=== PATIENT | female | born 1950 | race Two or more races ===

== ENCOUNTER 2016-08-03 13:36 | Outpatient (CLI) | payer MEDICARE | END 2016-08-03 13:37 | disposition home or self-care (01) | DX: M19.032 Primary osteoarthritis, left wrist (principal) ==

== ENCOUNTER 2016-08-09 08:00 | Outpatient (CLI) | payer MEDICARE | END 2016-08-09 08:01 | disposition home or self-care (01) | DX: R07.9 Chest pain, unspecified (principal); R06.02 Shortness of breath; R00.2 Palpitations; E78.00 Pure hypercholesterolemia, unspecified; R06.83 Snoring ==

== ENCOUNTER 2016-10-15 08:00 | Outpatient (CLI) | payer MEDICARE | END 2016-10-15 23:59 | DX: R07.9 Chest pain, unspecified (principal); R00.2 Palpitations; I34.0 Nonrheumatic mitral (valve) insufficiency; I51.9 Heart disease, unspecified; E78.00 Pure hypercholesterolemia, unspecified; R06.02 Shortness of breath; R06.83 Snoring ==

== ENCOUNTER 2017-08-08 10:55 | Emergency (ER) | payer MEDICARE ==
[2017-08-08 11:26] VITALS: BP 110/62
[2017-08-08] MEDS ORDERED: ONDANSETRON ODT 4 MG TABLET TL STA (12:10)
[2017-08-08] MEDS ORDERED: ACETAMINOPHEN 325 MG TABLET PO STA (12:10)
[2017-08-08] MEDS ORDERED: guaiFENesin/DEXTROMETHORPHAN 10 ML UDC PO STA (12:10)
[2017-08-08] MEDS ORDERED: BENZONATATE 100 MG CAPSULE PO STA (12:10)
--- NOTE | 2017-08-08 12:28 | XRAY Preliminary Report ---
Exam: XR CHEST 2 VIEW X-RAY IMPRESSION: No evidence of acute thoracic process [facility] SITE ID: [id number]
--- NOTE | 2017-08-08 12:28 | XRAY Report ---
EXAM: CHEST RADIOGRAPHY EXAM DATE: 08/08/2017 12:20 PM. CLINICAL HISTORY: Fever chest congestion. COMPARISON: Two-view chest 06/03/2016. TECHNIQUE: 2 views. FINDINGS: Lungs/Pleura: No focal opacities evident. No pleural effusion. No pneumothorax. Normal volumes. Mediastinum: Heart and mediastinal contours are unremarkable. IMPRESSION: No evidence of acute thoracic process [facility] Referring Provider Line: [phone] SITE ID: [id number]
[2017-08-08] MEDS ORDERED: OSELTAMIVIR 75 MG CAPSULE PO STA (12:49)
--- NOTE | 2017-08-08 12:51 | ED Physician Documentation ---
History of Present Illness - Stated complaint Stated Complaint: FEVER/CHILLS - Chief complaint Chief Complaint: General - Additonal information Additional information: hx from pt 66 male 3 days of fever chills GUERRERO mylagias cough no travel or sick contacts Review of Systems Constitutional: reports: Fever, Chills, Myalgias Respiratory: reports: Cough GI: denies: Vomiting, Diarrhea Neurologic: reports: Headache Immunocompromised: denies: Immunocompromised, Chemotherapy PD PAST MEDICAL HISTORY - Past Medical History Past Medical History: Yes Musculoskeletal: Chronic back pain - Past Surgical History 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 - Present Medications Home Medications: Ambulatory Orders Medication Instructions Recorded Confirmed Meloxicam 15 mg PO DAILY 02/17/14 08/08/17 Benzonatate [Tessalon] 100 mg PO TID PRN #20 capsule 08/08/17 Oseltamivir [Tamiflu] 75 mg PO BID #9 capsule 08/08/17 Pravastatin [Pravachol] 10 mg PO DAILY 08/08/17 08/08/17 guaiFENesin/DEXTROMETHORPHAN 10 ml PO Q6H PRN #120 ml 08/08/17 [Robitussin Dm] - Allergies Allergies/Adverse Reactions: Allergies Allergy/AdvReac Type Severity Reaction Status Date / Time No Known Drug Allergies Allergy Verified 08/08/17 11:26 - Social History Does the pt smoke?: No Smoking Status: Never smoker Does the pt drink ETOH?: No Does the pt have substance abuse?: No - Immunizations Immunizations are current?: Yes - POLST Patient has POLST: No PD ED PE NORMAL - Vitals Vital signs reviewed: Yes - General General: Alert and oriented X 3 - HEENT HEENT: PERRL, Ears normal, Moist mucous membranes - Neck Neck: Supple, no meningeal sign - Cardiac Cardiac: RRR - Respiratory Respiratory: No respiratory distress, Clear bilaterally - Abdomen Abdomen: Soft, Non tender - Derm Derm: Normal color - Extremities Extremities: No deformity - Neuro Neuro: Alert and oriented X 3 Results - Vitals Vitals: Vital Signs - 24 hr 08/08/17 11:23 Temperature 37.6 C H Heart Rate 99 Respiratory 20 Rate Blood Pressure 110/62 O2 Saturation 95 Oxygen O2 Source Room air - Labs Labs: Laboratory Tests 08/08/17 11:47 Influenza A (Rapid) POSITIVE H Influenza B (Rapid) Negative Influenza Types A,B Ag + H - Rads (name of study) CXR Radiology: See rad report (NACPD) Departure - Departure Disposition: 01 Home, Self Care Clinical Impression: Influenza A Condition: Good Instructions: ED Flu Follow-Up: Irena Mendoza ARNP [Primary Care Provider] - Prescriptions: Benzonatate [Tessalon] 100 mg PO TID PRN #20 capsule PRN Reason: to ease cough guaiFENesin/DEXTROMETHORPHAN [Robitussin Dm] 10 ml PO Q6H PRN #120 ml PRN Reason: Cough Oseltamivir [Tamiflu] 75 mg PO BID #9 capsule Comments: You do have influenza A You do not have pneumonia The tamiflu will help mitigate the severity of the symptoms but you will probably be sick for another week. If you get acutely worse, please come back to the ER - sometimes after having influenza, people can get a secondary pneumonia
== END 2017-08-08 13:02 | disposition home or self-care (01) ==
LOC: ED 10:55
DX: J09.X2 Influenza due to identified novel influenza A virus with other respiratory manifestations (principal)
CPT/HCPCS: 71046; 87275; 87276; 99283; A9270; Q0162; 81001; 81003; 87086

== ENCOUNTER 2018-01-10 08:00 | Outpatient (CLI) | payer MEDICARE ==
[2018-01-10 18:57] LABS: BILIRUBIN,URINE NEGATIVE (NEGATIVE); GLUCOSE, URINE (UA) NEGATIVE (NEGATIVE); KETONES,URINE (UA) NEGATIVE (NEGATIVE); LEUKOCYTE ESTERASE, URINE SMALL (NEGATIVE); NITRITE,URINE NEGATIVE (NEGATIVE); OCCULT BLOOD,URINE TRACE-LYSE (NEGATIVE); PROTEIN,URINE NEGATIVE (NEGATIVE); UROBILINOGEN,URINE 0.2 (NORMAL) E.U./dL (NORMAL)
[2018-01-10 18:59] LABS: CLARITY,URINE CLEAR (CLEAR)
[2018-01-10 19:20] LABS: BACTERIA,URINE Few /HPF (None Seen); RBC,URINE 0-5 /HPF (0-5); SQUAMOUS EPITHELIAL CELL,UR FEW Squamous (<= Few); WBC CLUMPS,URINE PRESENT
== END 2018-01-10 08:01 | disposition home or self-care (01) ==
LOC: LAB.R 08:00
PROVIDERS: ATTEND Nurse Practitioner Gerontology
DX: N39.0 Urinary tract infection, site not specified (principal)
CPT/HCPCS: 81001; 87086; 87181

== ENCOUNTER 2018-10-25 12:03 | Emergency (ER) | payer MEDICARE ==
[2018-10-25 12:14] VITALS: BP 119/72
--- NOTE | 2018-10-25 12:44 | ED Physician Documentation ---
History of Present Illness - Stated complaint Stated Complaint: VERTIGO EPISODE - Chief complaint Chief Complaint: Neuro - History obtained from History obtained from: Patient - History of Present Illness Timing: How many days ago (2) Pain level max: 0 Pain level now: 0 - Additonal information Additional information: 67-year-old female complains of the room spinning around her for the past 2 days. No headache, no trauma, no falls, no fever, cough, congestion. Feels similar to the BPPV she has had in the past. Worse with movement and better with rest. Review of Systems Constitutional: denies: Fever, Chills Eyes: denies: Loss of vision, Photophobia Ears: denies: Loss of hearing, Ear pain, Drainage/discharge Nose: denies: Rhinorrhea / runny nose Throat: denies: Sore throat Cardiac: denies: Chest pain / pressure Respiratory: denies: Cough GI: denies: Abdominal Pain, Vomiting, Diarrhea Skin: denies: Rash Musculoskeletal: denies: Neck pain, Back pain Neurologic: denies: Focal weakness, Numbness, Seizure, Confused, Altered mental status, Headache PD PAST MEDICAL HISTORY - Past Medical History Past Medical History: No Musculoskeletal: Chronic back pain - Past Surgical History 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 - Present Medications Home Medications: Ambulatory Orders Medication Instructions Recorded Confirmed Meloxicam 15 mg PO DAILY 02/17/14 08/08/17 Benzonatate [Tessalon] 100 mg PO TID PRN #20 capsule 08/08/17 Oseltamivir [Tamiflu] 75 mg PO BID #9 capsule 08/08/17 Pravastatin [Pravachol] 10 mg PO DAILY 08/08/17 08/08/17 guaiFENesin/DEXTROMETHORPHAN 10 ml PO Q6H PRN #120 ml 08/08/17 [Robitussin Dm] Meclizine [Antivert] 12.5 - 25 mg PO Q6H PRN #30 tablet 10/25/18 Ondansetron Odt [Zofran] 4 mg TL Q6H PRN #10 tablet 10/25/18 - Allergies Allergies/Adverse Reactions: Allergies Allergy/AdvReac Type Severity Reaction Status Date / Time No Known Drug Allergies Allergy Verified 10/25/18 12:13 - Living Situation Living Situation: reports: With family Living Arrangement: reports: At home - Social History Does the pt smoke?: No Smoking Status: Never smoker Does the pt drink ETOH?: No Does the pt have substance abuse?: No - Immunizations Immunizations are current?: Yes - POLST Patient has POLST: No PD ED PE NORMAL - Vitals Vital signs reviewed: Yes - General General: Alert and oriented X 3, No acute distress, Well developed/nourished - HEENT HEENT: Atraumatic, PERRL, EOMI, Ears normal, Moist mucous membranes, Pharynx benign, Other (Positive nystagmus to the right, Horizontal) - Neck Neck: Supple, no meningeal sign - Cardiac Cardiac: RRR, No murmur, Strong equal pulses - Respiratory Respiratory: No respiratory distress, Clear bilaterally - Abdomen Abdomen: Soft, Non tender, Non distended - Back Back: No spinal TTP - Derm Derm: Warm and dry, No rash - Extremities Extremities: No edema, No calf tenderness / cord - Neuro Neuro: Alert and oriented X 3, 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 Normal gait) - Psych Psych: Normal mood, Normal affect Results - Vitals Vitals: Vital Signs - 24 hr 10/25/18 12:10 Temperature 36.6 C Heart Rate 73 Respiratory 16 Rate Blood Pressure 119/72 O2 Saturation 98 Oxygen O2 Source Room air PD MEDICAL DECISION MAKING - ED course Complexity details: considered differential, d/w patient ED course: 67-year-old female with what appears to be BPPV. Will treat with meclizine and positional maneuvers at home. No evidence of stroke, tumor, mass, bleed. Patient counseled regarding signs and symptoms for which I believe and urgent re-evaluation would be necessary. Patient with good understanding of and agreement to plan and is comfortable going home at this time This document was made in part using voice recognition software. While efforts are made to proofread this document, sound alike and grammatical errors may occur. Departure - Departure Disposition: 01 Home, Self Care Clinical Impression: Vertigo Condition: Good Instructions: ED Vertigo Unspecified Follow-Up: Irena Mendoza ARNP [Primary Care Provider] - Within 1 week Prescriptions: Meclizine [Antivert] 12.5 - 25 mg PO Q6H PRN #30 tablet PRN Reason: Vertigo Ondansetron Odt [Zofran] 4 mg TL Q6H PRN #10 tablet PRN Reason: Nausea / Vomiting Comments: Return if you worsen. Use the medications as prescribed. You can search [email or web address] for the simone maneuver or the half somersault maneuver at home as well. Discharge Date/Time: 10/25/18 12:48
== END 2018-10-25 12:48 | disposition home or self-care (01) ==
LOC: ED 12:03
DX: R42 Dizziness and giddiness (principal)
CPT/HCPCS: 99283

== ENCOUNTER 2019-06-11 10:20 | Outpatient (CLI) | payer MEDICARE | END 2019-06-11 23:59 | disposition home or self-care (01) | LOC: LAB.R 10:20 | PROVIDERS: ATTEND Nurse Practitioner Gerontology | DX: N39.0 Urinary tract infection, site not specified (principal) | CPT/HCPCS: 87086; 87181 ==

== ENCOUNTER 2019-09-11 08:00 | Outpatient (CLI) | payer MEDICARE ==
[2019-09-11 12:14] LABS: ALBUMIN/GLOBULIN RATIO 1.4 (1.0-2.2); ALKALINE PHOSPHATASE 55 IU/L (42-121); ALT ALANINE AMINOTRANSFERASE 16 IU/L (10-60); AST ASPARTATE AMINOTRANSFERASE 20 IU/L (10-42); BILIRUBIN,TOTAL 0.7 mg/dL (0.2-1.0); BUN - BLOOD UREA NITROGEN 17 mg/dL (6-20); CALCIUM 9.4 mg/dL (8.5-10.3); CARBON DIOXIDE - CO2 25 mmol/L (21-32); CHLORIDE 109 mmol/L (101-111); CHOL/HDL RATIO 3.1 (<4.4); CHOLESTEROL 182 mg/dL; CREATININE 0.9 mg/dL (0.4-1.0); GFR - MDRD 62 (>89); GLUCOSE 107 mg/dL (70-100); HDL CHOLESTEROL 58 mg/dL; LDL CHOLESTEROL,CALCULATED 110 mg/dL; LDL/HDL RATIO 1.9 (<4.4); SODIUM 141 mmol/L (135-145); TOTAL PROTEIN 6.8 g/dL (6.7-8.2); VLDL CHOLESTEROL 14 mg/dL
== END 2019-09-11 23:59 | disposition home or self-care (01) ==
LOC: LAB.N 08:00
PROVIDERS: ATTEND Internal Medicine Cardiovascular Disease
DX: E78.5 Hyperlipidemia, unspecified (principal)
CPT/HCPCS: 36415; 80053; 80061; 83721

== ENCOUNTER 2022-08-24 17:55 | Outpatient (CLI) | payer MEDICARE | END 2022-08-24 23:59 | disposition home or self-care (01) | LOC: LAB.N 17:55 | PROVIDERS: ATTEND Nurse Practitioner | DX: R30.0 Dysuria (principal) | CPT/HCPCS: 87086; 87181 ==

== ENCOUNTER 2023-01-28 14:20 | Outpatient (CLI) | payer MEDICARE ==
--- NOTE | 2023-01-31 08:55 | Mammography Report ---
BILATERAL DIGITAL SCREENING MAMMOGRAM 3D/2D: 01/28/2023 CLINICAL: Routine screening. Comparison is made to exam dated: 09/23/2015 mammogram - [facility]. Both breasts are heterogeneously dense, which may obscure small masses (category c / 51-75% glandular tissue). No significant masses, calcifications, or other findings are seen in either breast. There has been no significant interval change. IMPRESSION: NEGATIVE There is no mammographic evidence of malignancy. A 1 year screening mammogram is recommended. Based on the Tyrer Cuzick model (a risk assessment model) the patients lifetime risk is 3.7% and her 10 year risk is 3.3%. According to the ACR, ACS, and NCCN guidelines, an annual breast MRI exam gisel g with mammogram is recommended if the patients lifetime risk is 20% or greater. This exam was interpreted at Station ID: [id number]. NOTE: For mammograms, a report in lay terms will be sent to the patient. Approximately 15% of breast malignancies will not be visualized mammographically. In the management of a palpable breast mass, a negative mammogram must not discourage biopsy of a clinically suspicious lesion. Electronically Signed By: Louie hung/margo:01/28/2023 18:16:00 letter sent: No_Letter ACR BI-RADS Category 1: Negative 3341F PARENCHYMAL PATTERN: (D) - The breast(s) demonstrate(s) heterogeneously dense fibroglandular willa pereira. BI-RADS CATEGORY: (1) - 1 Mammogram [id number] 1 year screening LATERALITY: (B)
== END 2023-01-28 14:21 | disposition home or self-care (01) ==
LOC: DI 14:20
PROVIDERS: ATTEND Student in an Organized Health Care Education/Training Program
DX: Z12.31 Encounter for screening mammogram for malignant neoplasm of breast (principal)

== ENCOUNTER 2023-01-28 14:21 | Outpatient (CLI) | payer MEDICARE ==
--- NOTE | 2023-01-28 20:48 | DEXA Report ---
PROCEDURE: Dexa Spine and/or Hip INDICATIONS: SCREENING FOR OSTEOPOROSIS TECHNIQUE: Dual energy x-ray absorptiometry (DXA) was performed on a [facility]. Regions measur ed are the AP Spine, femoral neck, and if needed forearm. COMPARISON: None. FINDINGS: Lumbar Spine: Bone Mineral Density 0.989 g/cm/cm,T score -1.6. Left Femoral Neck: Bone Mineral Density 0.826 g/cm/cm, T score -1.5. Left Hip: Bone Mineral Density 0.866 g/cm/cm,T score -1.1. (T score greater or equal to -1.0: NORMAL) (T score from -1.1 to -2.4: OSTEOPENIA) (T score less than or equal to -2.5 to: OSTEOPOROSIS) Impression: By WHO criteria, this patient has low bone density (osteopenia). Patients with diagnosis of osteoporosis or osteopenia should have regular bone mineral density assess ment. For those eligible for Medicare, routine testing is allowed once every 2 years. Testing frequ ency can be increased for patients who have rapidly progressing disease or for those who are receivin g medical therapy to restore bone mass. Reviewed by: Sal Wallis MD on 01/28/2023 8:46 PM PDT Approved by: Sal Wallis MD on 01/28/2023 8:46 PM PDT Station ID: [id number]
== END 2023-01-28 14:22 | disposition home or self-care (01) ==
LOC: DI 14:21
PROVIDERS: ATTEND Student in an Organized Health Care Education/Training Program
DX: Z13.820 Encounter for screening for osteoporosis (principal); M85.89 Other specified disorders of bone density and structure, multiple sites; Z78.0 Asymptomatic menopausal state

== ENCOUNTER 2023-08-02 08:25 | Outpatient (CLI) | payer MEDICARE ==
[2023-08-02 12:12] LABS: HCT - HEMATOCRIT 40.9 % (37.0-47.0); HGB - HEMOGLOBIN 12.9 g/dL (12.0-16.0); MEAN CORPUSCULAR HEMOGLOBIN 31.6 pg (27.0-31.0); MEAN CORPUSCULAR HGB CONC 31.5 g/dL (32.0-36.0); MEAN CORPUSCULAR VOLUME 100.2 fL (81.0-99.0); MEAN PLATELET VOLUME 10.4 fL (7.9-10.8); RED BLOOD COUNT 4.08 10^6/uL (4.20-5.40); RED CELL DISTRIBUTION WIDTH 12.6 % (12.0-15.0); WHITE BLOOD COUNT 4.4 x10^3/uL (4.8-10.8)
[2023-08-02 12:43] LABS: ALBUMIN 4.1 g/dL (3.2-5.5); ALBUMIN/GLOBULIN RATIO 1.7 (1.0-2.2); ALKALINE PHOSPHATASE 72 IU/L (42-121); ALT ALANINE AMINOTRANSFERASE 18 IU/L (10-60); AST ASPARTATE AMINOTRANSFERASE 21 IU/L (10-42); BILIRUBIN,TOTAL 0.4 mg/dL (0.2-1.0); BUN - BLOOD UREA NITROGEN 11 mg/dL (6-20); CALCIUM 9.8 mg/dL (8.5-10.3); CARBON DIOXIDE - CO2 28 mmol/L (21-32); CHLORIDE 109 mmol/L (101-111); CHOL/HDL RATIO 3.1 (<4.4); CHOLESTEROL 187 mg/dL; CREATININE 0.8 mg/dL (0.6-1.3); GFR - MDRD 70 (>89); GLUCOSE 105 mg/dL (74-104); HDL CHOLESTEROL 60 mg/dL; LDL CHOLESTEROL,CALCULATED 106 mg/dL; LDL/HDL RATIO 1.8 (<4.4); MAGNESIUM 1.9 mg/dL (1.7-2.3); POTASSIUM 3.9 mmol/L (3.5-4.5); SODIUM 142 mmol/L (135-145); TOTAL PROTEIN 6.5 g/dL (6.4-8.9); TRIGLYCERIDES 103 mg/dL (48-352); VLDL CHOLESTEROL 21 mg/dL
[2023-08-02 12:46] LABS: THYROID STIMULATING HORMONE 2.29 uIU/mL (0.34-5.60)
== END 2023-08-02 08:26 | disposition home or self-care (01) ==
LOC: LAB.N 08:25
PROVIDERS: ATTEND Internal Medicine Cardiovascular Disease
DX: E78.5 Hyperlipidemia, unspecified (principal); R00.2 Palpitations
CPT/HCPCS: 36415; 80053; 80061; 83721; 83735; 84443; 85027

== ENCOUNTER 2024-03-12 11:30 | Outpatient (CLI) | payer MEDICARE | END 2024-03-12 11:45 | disposition home or self-care (01) | LOC: LAB.N 11:30 | PROVIDERS: ATTEND Nurse Practitioner | DX: J02.9 Acute pharyngitis, unspecified (principal) | CPT/HCPCS: 87070 ==